=== PATIENT | male | born 2000 | race Caucasian/White ===

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

== ENCOUNTER 2023-05-13 13:26 | Emergency (ER) | payer BC, SELFPAY ==
[2023-05-13] VITALS (20 sets, daily range): BP systolic 90–116; BP diastolic 49–72; PULSE 51–114; RESP 13–26; O2SAT 83–100
--- NOTE | ~2023-05-13 | CT_ITS ---
EXAMINATION: CT brain wo con DATE: 05/13/2023 16:19 INDICATION: Syncope. TECHNIQUE: Computed tomography (CT) of the head was performed without intravenous contrast. The mA wa s adjusted according to patient size. Iterative reconstruction technique was employed. The dose-lengt h product was 605.33 mGy-cm. COMPARISON: None FINDINGS: There is no intracranial hemorrhage, acute infarction, or abnormal intracranial mass lesion . The ventricles are normal in size. The paranasal sinuses are clear. The mastoid air cells are kaylin l. The orbits are normal. IMPRESSION: 1. Normal brain. Reviewed, dictated and finalized at location E. E CUTTING MACHINE OPERATOR IMPRESSION: 1. Normal brain.
--- NOTE | ~2023-05-13 | CT_ITS ---
EXAMINATION: CTA chest PE protocol DATE: 05/13/2023 14:58 INDICATION: Cardiac arrest and syncopal episode. TECHNIQUE: Computed tomography (CT) pulmonary angiogram of the chest was performed with 100 mL Omnipa que-350 intravenous contrast. Additional 3D reconstructions utilizing coronal maximum intensity proje ction (MIP) were performed. Automated exposure control and iterative reconstruction technique were em ployed. The dose-length product was 235.24 mGy-cm. COMPARISON: None FINDINGS: Diagnostic quality study for pulmonary embolism with excellent contrast opacification of the pulmonar y arteries. No pulmonary embolism. There is also good contrast opacification of the aorta which is no rmal caliber with no dissection. Lungs are clear with no pneumonia, pulmonary edema, pleural effusion or pneumothorax. Heart size is normal. No pericardial effusion. No pathologically enlarged thoracic lymphadenopathy. Visualized upper abdomen and bones are unremarkable. IMPRESSION: 1. Normal thoracic aorta. No pulmonary embolism or other acute intra-abdominal/pelvic process. Reviewed, dictated and finalized at location A. ILL SUPERVISOR IMPRESSION: 1. Normal thoracic aorta. No pulmonary embolism or other acute intra-abdominal/ pelvic process.
--- NOTE | 2023-05-13 13:29 | ECG_ITS ---
Measurements Intervals [place] Rate: 54 P: 34 VA: 140 QRS: 91 QRSD: 98 T: 74 QT: 410 QTc: 389 Interpretive Statements SINUS BRADYCARDIA WITH MARKED SINUS ARRHYTHMIA INCOMPLETE RIGHT BUNDLE BRANCH BLOCK ST ELEVATION IN ANT/INF LEADS- PROBABLY EARLY REPOLARIZATION BASELINE ARTIFACT- I, II, III, AVR, AVL, AVF, V1-V3 BORDERLINE ECG NO PREVIOUS ECG AVAILABLE FOR COMPARISON Electronically Signed On 05-13-2023 13:42:33 MORTGAGE SPECIALIST by Zaki Tiwari D.O.
--- NOTE | 2023-05-13 13:44 | PC.NURSE ---
blood sugar at 95 at this time.
[2023-05-13 13:45] LABS: Glucose Point of Care 97 mg/dl (65-105)
--- NOTE | 2023-05-13 13:50 | ED.DIZZY ---
HPI - Dizziness General Chief Complaint: Syncope <Ran Mahmood PA-C - Last Filed: 05/13/23 17:40> Stated Complaint: syncopal episode after lab draw <Ran Mahmood PA-C - Last Filed: 05/13/23 17:40> Time Seen by Provider: 05/13/23 13:29 <Ran Mahmood PA-C - Last Filed: 05/13/23 17:40> Source: patient and family <Ran Mahmood PA-C - Last Filed: 05/13/23 17:40> Mode of arrival: ambulatory <Ran Mahmood PA-C - Last Filed: 05/13/23 17:40> Limitations: no limitations <Ran Mahmood PA-C - Last Filed: 05/13/23 17:40> History of Present Illness HPI Narrative: This is a 22-year-old male who presents to the ED with chief complaint of of syncopal episode occurring at class during a blood draw today. He is here with mother who is supplementing history. Patient reports that he is very afraid of needles. He states that when they were about to draw his blood he felt the break of the needle and started to woozy and lightheaded. Reports that he he remembers coming to in the lab. Reports feeling nauseated currently. He also reports a little bit of back pain but no chest pain. Denies shortness of breath or cough. Denies any numbness or weakness of the extremities. <Ran Mahmood PA-C - Last Filed: 05/13/23 17:40> Related Data Allergies/Adverse Reactions: Allergies Allergy/AdvReac Type Severity Reaction Status Date / Time clindamycin Allergy Hives Verified 02/11/20 11:42 <Ran Mahmood PA-C - Last Filed: 05/13/23 17:40> Review of Systems Review of Systems: All systems as dictated in HPI <Ran Mahmood PA-C - Last Filed: 05/13/23 17:40> PMFSH Past Medical History Medical History: Medical History (Updated 05/13/23 @ 15:59 by Ran Mahmood PA-C) No pertinent past medical history <Ran Mahmood PA-C - Last Filed: 05/13/23 17:40> Surgical History Surgical History: Surgical History No pertinent past surgical history <Ran Mahmood PA-C - Last Filed: 05/13/23 17:40> Social History Social History: Social History (Updated 02/11/20 @ 13:21 by Kiera Priest MD) Smoking status: Never smoker Alcohol intake: never Substance use: never Living arrangements: with family Occupation/Education: occupation Additional occupation/education comments: student <Ran Mahmood PA-C - Last Filed: 05/13/23 17:40> Exam Narrative: GENERAL: Well-appearing, well-nourished, and in no acute distress. HEAD: Normocephalic, atraumatic. EYES: PERRLA and EOMI. ENT: Nares clear, no rhinorrhea or epistaxis. Mucous membranes moist. Oropharynx without tonsillar hypertrophy exudate or other lesions. NECK: Supple. No adenopathy or masses. CHEST: No respiratory distress. Clear to auscultation. No wheezes rales or rhonchi HEART: Regular rate and rhythm. No murmur heard. Normal peripheral pulses. ABDOMEN: Soft, nontender, nondistended, normal active bowel sounds. MSK: Normal range of motion. No edema. SKIN: Warm, dry, no rash. NEURO: Alert and oriented x3. No focal deficits. PSYCH: Normal mood and affect. <Ran Mahmood PA-C - Last Filed: 05/13/23 17:40> Course Course Emergency Course: Re-evaluation 1529: He is feeling much improved. no longer nauseous Re-evaluation 1605: vomiting in room. CT brain ordered. reglan ordered <Ran Mahmood PA-C - Last Filed: 05/13/23 17:40> STENOTYPIST/PA Physician Supervision For this patient encounter, I reviewed the STENOTYPIST or PA documentation, treatment plan, and medical decision making and I had [id number] time with this patient. I performed all aspects of the MDM as documented. <Christy Milligan MD - Last Filed: 05/13/23 22:08> Vital Signs Vital signs: Vital Signs Pulse Rate 53 L 05/13/23 13:32 Respiratory Rate 17 05/13/23 13:32 Blood Pressure 115/68 05/13/23 13:32 Pulse Oximetry 100 05/13/23 13:32 Oxygen Delivery Room Air
[2023-05-13 14:11] LABS: Basophils Percent Auto 0.3 % (0.2-1.2); Eosinophils Percent Auto 0.3 % (0-4.4); Hematocrit 45.2 % (42.0-52.0); Hemoglobin 15.7 g/dL (14.0-18.0); Immature Granulocyte Absolute 0.07 K/mm3 (0.00-0.031); Immature Granulocyte Percent A 0.6 % (0-0.5); Lymphocytes Absolute Auto 1.39 K/mm3 (0.9-3.2); Lymphocytes Percent Auto 11.5 % (18.3-44.2); Mean Corpuscular HGB Conc 34.7 g/dl (32-36); Mean Corpuscular Hemoglobin 32.2 pg (26-34); Mean Corpuscular Volume 92.6 fl (80-100); Mean Platelet Volume 9.4 fl (7.4-10.4); Monocytes Absolute Auto 0.6 K/mm3 (0.1-0.6); Monocytes Percent Auto 5.3 % (2.6-8.5); Neutrophils Absolute Auto 9.9 K/mm3 (1.3-6.7); Platelet Count Result 251 k/mm3 (150-375); Red Blood Count 4.88 M/mm3 (4.6-6.20); Red Cell Distribution Width 11.5 % (11.5-14.5); White Blood Count 12.1 K/mm3 (4.5-10.0)
[2023-05-13 14:23] LABS: Alanine Aminotransferase 20 U/L (6-50); Albumin Level 4.6 g/dL (3.5-5.1); Alkaline Phosphatase 82 U/L (38-126); Anion Gap 10 mmol/L (8-16); Aspartate Amino Transferase 28 U/L (17-59); Bilirubin,Total 1.4 mg/dL (0.2-1.3); Blood Urea Nitrogen 12 mg/dL (9-20); Calcium 9.8 mg/dL (8.4-10.2); Carbon Dioxide 26 mmol/L (22-30); Chloride 102 mmol/L (98-107); Estimated CRCL calculation 107 ml/min; Estimated Glomerular Filt Rate > 60; Glucose 108 mg/dL (65-110); Potassium 3.7 mmol/L (3.4-5.0); Sodium 138 mmol/L (137-145)
[2023-05-13] MEDS: ONDANSETRON INJ 4 MG/2 ML VIAL IV PUSH (14:29)
[2023-05-13] MEDS: SODIUM CHLORIDE 0.9% IV 1,000 ML 999 ML IV CONT (14:30)
[2023-05-13 14:34] LABS: Troponin I < 0.012 ng/mL (0.000-0.034)
[2023-05-13] MEDS: METOCLOPRAMIDE HCL INJ 10 MG/2 ML VIAL IV PUSH (16:39)
== END 2023-05-13 17:52 | disposition home or self-care (01) ==
PROVIDERS: Emergency Medicine; Emergency Provider Physician Assistant; PCP Pediatrics
DX: R55 Syncope and collapse (principal); R00.1 Bradycardia, unspecified; I45.10 Unspecified right bundle-branch block; R94.31 Abnormal electrocardiogram [ECG] [EKG]
CPT/HCPCS: 36415; 70450; 71275; 80053; 82948; 84484; 85025; 93005; 96361; 96374; 96375; 99284; J2405; J2765; J7030; Q9967

== ENCOUNTER 2023-08-11 15:32 | Outpatient (CLI) | payer BC, SELFPAY ==
[2023-08-11 21:20] LABS: Free T4 Free Thyroxine 1.16 ng/mL (0.78-2.19)
[2023-08-14 09:16] LABS: Triiodothyronine T3 Free 3.6 pg/mL (2.3-4.2)
== END 2023-08-11 15:33 | disposition home or self-care (01) ==
PROVIDERS: PCP Family Medicine
DX: E05.00 Thyrotoxicosis with diffuse goiter without thyrotoxic crisis or storm (principal)
CPT/HCPCS: 36415; 84439; 84443; 84481

== ENCOUNTER 2023-08-11 16:28 | Emergency (ER) | payer BC, SELFPAY ==
[2023-08-11 16:34] VITALS: BP 101/54; PULSE 75; RESP 16; TEMP 36.5; O2SAT 100
[2023-08-11 17:51] VITALS: BP 111/66; PULSE 47; RESP 15; O2SAT 100
--- NOTE | 2023-08-11 18:32 | ECG_ITS ---
Measurements Intervals [place] Rate: 54 P: 56 [place]: 163 QRS: 94 QRSD: 98 T: 75 QT: 407 QTc: 387 Interpretive Statements SINUS BRADYCARDIA WITH MARKED SINUS ARRHYTHMIA BORDERLINE RIGHT AXIS DEVIATION [QRS AXIS > 90] ST ELEVATION, PROBABLY EARLY REPOLARIZATION [ST ELEVATION WITH NORMALLY INFLECTED T WAVE] COMPARED TO ECG 05/13/2023 13:39:08 NO SIGNIFICANT CHANGES Electronically Signed On 08-12-2023 11:00:54 CDT by Jose Luis Harding M.D.
[2023-08-11 19:07] VITALS: BP 109/61; PULSE 48; RESP 18; O2SAT 100
[2023-08-11] MEDS: ONDANSETRON HCL ODT 4 MG TABLET PO (19:37)
[2023-08-11 19:42] VITALS: BP 108/45; PULSE 94; RESP 15; O2SAT 99
--- NOTE | 2023-08-11 20:15 | ED.SYNCOPE ---
HPI - Syncope General Chief Complaint: Syncope Stated Complaint: syncopy post blood draw Time Seen by Provider: 08/11/23 19:10 History of Present Illness HPI narrative: Patient is a 23-year-old male who presents the emergency department this evening after syncopal episode. Patient was getting outpatient blood drawn when he syncopized and was brought to our emergency department for further evaluation. Mother is currently present the patient states that this has happened before, in May and admits that that episode was also precipitated by blood draw. 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 He is currently wearing a heart monitor per his arabic linguist to monitor his heart rate and lemon picker any sinus pauses. Patient states that after the syncopal episode he became nauseous and has had a few episodes of vomiting. He denies any additional symptoms including chest pain or shortness of breath, any headaches, lightheadedness, dizziness, focal weakness, numbness and tingling. Patient denies falling or hitting his head. There are no additional modifying, alleviating, or precipitating factors at this time. Related Data Home Medications Medication Instructions Recorded Confirmed methimazole 5 mg tablet 5 mg PO DAILY 06/18/23 Allergies Allergy/AdvReac Type Severity Reaction Status Date / Time clindamycin Allergy Hives Verified 06/18/23 07:44 Review of Systems Review of Systems: All systems are reviewed and are negative unless stated otherwise in the HPI. [facility] Past Medical History Medical History No pertinent past medical history Surgical History Surgical History No pertinent past surgical history Family History Family History Grandparent Afib Pacemaker Social History Social History Smoking status: Never smoker Alcohol intake: never Substance use: never Living arrangements: with family Occupation/Education: occupation Additional occupation/education comments: student Exam Narrative: General: Alert, awake, afebrile, in no acute distress. HEENT: PERRL, no rhinorrhea, no post nasal drip, oropharynx clear. Neck: Trachea midline, no JVD, no lymphadenopathy. Cardiovascular: Bradycardic with regular rhythm, no murmurs, rubs or gallops, no peripheral edema. Respiratory: Clear to auscultation bilaterally, no tachypnea, no wheezing, no rhonchi, no rubs, no respiratory distress. Abdomen: Soft, nontender, nondistended, no rebound, no guarding, no peritoneal signs. Musculoskeletal: No joint swelling or deformity, normal muscle tone. Skin: No rashes or petechia, no signs of infection. Psychiatric: Alert and oriented, normal behavior and judgment for situation. Neurological: Alert and oriented to person, place, and time. Follows all commands. No focal deficits, speech is clear and fluent. Course Vital Signs Vital signs: Vital Signs Temperature 97.7 F 08/11/23 16:34 Pulse Rate 75 08/11/23 16:34 Respiratory Rate 16 08/11/23 16:34 Blood Pressure 101/54 L 08/11/23 16:34 Pulse Oximetry 100 08/11/23 16:34 Temperature 97.7 F 08/11/23 16:34 Pulse Rate 94 08/11/23 19:42 Respiratory Rate 15 08/11/23 19:42 Blood Pressure 108/45 L 08/11/23 19:42 Pulse Oximetry 99 08/11/23 19:42 MDM - Syncope MDM Narrative Medical decision making narrative: The patient was evaluated by myself in the emergency department. History is obtained from patient who is an independent historian and physical exam was performed. External medical records were reviewed at this time. Patient was administered 4 mg of oral ODT Zofran. At this time, mother and patient are refusing any blood work, stating that she does not feel as though i
== END 2023-08-11 20:36 | disposition home or self-care (01) ==
PROVIDERS: Emergency Provider Emergency Medicine; PCP Family Medicine
DX: R55 Syncope and collapse (principal); R11.2 Nausea with vomiting, unspecified
CPT/HCPCS: 36415; 84439; 84443; 84481; 93005; 99284; A9270

== ENCOUNTER 2024-02-07 13:04 | Outpatient (CLI) | payer BC, SELFPAY ==
[2024-02-07 14:46] LABS: Free T3 2.62 pg/mL (2.18-3.98); Free T4 Free Thyroxine 0.82 ng/dL (0.76-1.46); Thyroid Stimulating Hormone 3.12 uIU/mL (0.36-3.74)
[2024-02-15 22:08] LABS: Thyrotropin Receptor Antibody 1.88 IU/L (< OR = 2.00)
== END 2024-02-07 13:05 | disposition home or self-care (01) ==
LOC: CHSLAB 13:08
PROVIDERS: PCP Family Medicine
DX: E05.00 Thyrotoxicosis with diffuse goiter without thyrotoxic crisis or storm (principal); R42 Dizziness and giddiness
CPT/HCPCS: 36415; 83519; 84439; 84443; 84481